=== PATIENT | female | born 1980 | race Caucasian/White ===

== ENCOUNTER → 2023-05-23 | Outpatient (CLI) | payer OTHER ==
--- NOTE | 2023-05-23 13:50 | MM ---
Reason for Exam: Clinical finding. Patient History: Menarche at age 20. First Full-Term at age 22. Currently using Hormonal Contraceptives, starting at age 40. 07/28/2020, Bilateral Implant Removal. 07/28/2020, Bilateral Implants. 07/28/2006, Bilateral Implants. Paternal aunt had breast cancer. Risk Values: Lorna 5 year model risk: 0.5%. NCI Lifetime model risk: 8.3%. Tissue Density: The breast tissue is heterogeneously dense. This may lower the sensitivity of mammography. Findings: Bilateral breast implants demonstrated. No suspicious mass, group of calcifications, architectural distortion within either breast. Overall Assessment: Incomplete: need additional imaging evaluation, BI-RAD 0 Management: Diagnostic Breast Ultrasound of the left breast. A clinical breast exam by your physician is recommended on an annual basis and results should be correlated with mammographic findings. This exam should not preclude additional follow-up of suspicious palpable abnormalities. Results were given to the patient verbally at the time of exam. Note on Lorna scores and lifetime risk: 1. A Lorna score greater than 3% is considered moderate risk. If this is the case, consider specialist referral to assess eligibility for a risk reducing agent. If overall lifetime risk for the development of breast cancer is 20% or higher, the patient may qualify for future screening with alternating mammogram and breast MRI. Electronically signed and approved by: Dru Arthur D.O.
--- NOTE | 2023-05-23 14:49 | USB ---
Reason for Exam: Clinical finding. Patient History: Menarche at age 20. First Full-Term at age 22. Currently using Hormonal Contraceptives, starting at age 40. 07/28/2020, Bilateral Implant Removal. 07/28/2020, Bilateral Implants. 07/28/2006, Bilateral Implants. Paternal aunt had breast cancer. Risk Values: Lorna 5 year model risk: 0.5%. NCI Lifetime model risk: 8.3%. Technique: Method: Targeted. Findings: The upper outer quadrant of the left breast, the axilla of the left breast and the retroareolar of the left breast were scanned. Targeted ultrasound left breast from 1-3 o'clock with additional evaluation of the nipple and axillary tail was performed. No solid or cystic lesion identified. Normal appearance of the implant interface. Overall Assessment: Benign, BI-RAD 2 Management: Screening Mammogram of both breasts in 1 year. A clinical breast exam by your physician is recommended on an annual basis and results should be correlated with mammographic findings. This exam should not preclude additional follow-up of suspicious palpable abnormalities. Results were given to the patient verbally at the time of exam. Electronically signed and approved by: Dru Arthur D.O.
== END | disposition home or self-care (01) ==
LOC: RADMAMWWP 13:06
PROVIDERS: ATTEND Surgery
DX: N63.20 Unspecified lump in the left breast, unspecified quadrant (principal); N63.10 Unspecified lump in the right breast, unspecified quadrant; N64.4 Mastodynia; R92.333 Mammographic heterogeneous density, bilateral breasts; Z80.3 Family history of malignant neoplasm of breast
CPT/HCPCS: 77066; 76642; G0279; 77062